=== PATIENT | female | born 1995 | race Caucasian/White ===

== ENCOUNTER 2017-11-25 00:27 | Emergency (ER) | payer MEDICAID ==
[~2017-11-25] VITALS: Ht 162.6 cm; Wt 79.4 kg
[~2017-11-25 00:27] MED LIST: DOXY-216 PO; LEVO-28 PO
[2017-11-25 00:35] VITALS: BP 118/70
== END 2017-11-25 01:07 | disposition left against medical advice (07) ==
LOC: EDBD 00:27 → ER 00:27
DX: F10.10 Alcohol abuse, uncomplicated (principal); Z53.21 Procedure and treatment not carried out due to patient leaving prior to being seen by health care provider